=== PATIENT | male | born 1970 | race Caucasian/White ===

== ENCOUNTER 2016-10-20 12:55 | Emergency (ER) | payer BC, MEDICAID ==
[~2016-10-20] VITALS: Ht 177.8 cm; Wt 95.3 kg
--- NOTE | 2016-10-20 13:00 | NUR ---
Placed in room 3 . Placed on electronic device monitor, blood pressure machine and pulse oximeter. To gown for exam. Side rails up. Report given to Gabriela SIMPSON.
--- NOTE | 2016-10-20 13:12 | NUR ---
ER Dr. Ramos at bedside examining patient.
[2016-10-20 13:13] VITALS: BP 138/72; PULSE 65; RESP 16; TEMP 97.8; O2SAT 97
--- NOTE | 2016-10-20 13:15 | NUR ---
PER PATIENT HE STATRTED HAVING ON AND OFF CHEST PAIN ABOUT MORE THAN A WEEK AGO.NO COMPLAIN AT THIS TIME STATED "MY CHEST PAIN COME AND GO".CHECKED AND ASSESSED CHEST;NO SWELLING;NO REDNESS;NO TENDERNESS.NO OTHER COMPLAIN/INJURIES PER PATIENT OR NOTED
[2016-10-20 13:23] LABS: BASOPHILS # (AUTO) 0.1 K/uL (0.0-0.2); BASOPHILS % (AUTO) 1.1 % (0.0-2.0); EOSINOPHILS # (AUTO) 0.3 K/uL (0.0-0.4); EOSINOPHILS % (AUTO) 4.4 % (0.0-4.0); HEMATOCRIT 47.6 % (36-54); HEMOGLOBIN 15.4 g/dL (14.0-18.0); LYMPHOCYTES # (AUTO) 2.1 K/uL (1.0-5.5); LYMPHOCYTES % (AUTO) 27.4 % (20.5-51.5); MEAN CORPUSCULAR HEMOGLOBIN 28 pg (27-31); MEAN CORPUSCULAR HGB CONC 32 % (32-36); MEAN CORPUSCULAR VOLUME 86 fL (79.0-98.0); MONOCYTES # (AUTO) 0.6 K/uL (0.0-1.0); MONOCYTES % (AUTO) 7.2 % (1.7-9.3); NEUTROPHILS # (AUTO) 4.7 K/uL (1.8-7.7); NEUTROPHILS % (AUTO) 59.9 % (40.0-70.0); PLATELET COUNT (AUTO) 320 K/uL (130-430); RED BLOOD CELL COUNT(AUTO) 5.57 MIL/uL (4.2-6.2); RED CELL DISTRIBUTION WIDTH 12.9 % (9.0-15.0); WHITE BLOOD COUNT (AUTO) 7.8 K/uL (4.8-10.8)
[2016-10-20 13:33] LABS: CREATININE 1.11 mg/dL (0.55-1.30); POTASSIUM 4.3 mmol/L (3.5-5.1)
[2016-10-20 13:38] LABS: ALBUMIN 4.1 g/dL (3.4-4.8); TOTAL BILIRUBIN 1.3 mg/dL (0.0-1.0); TOTAL PROTEIN, SERUM 7.1 g/dL (6.4-8.3)
[2016-10-20 13:39] LABS: PROTHROMBIN TIME 10.7 SECS (9.5-12.5)
[2016-10-20 13:43] LABS: BILIRUBIN,URINE NEGATIVE (NEGATIVE); BLOOD, URINE NEGATIVE (NEGATIVE); CLARITY/URINE CLEAR (CLEAR); COLOR,URINE YELLOW (YELLOW); GLUCOSE,URINE NEGATIVE (NEGATIVE); KETONES,URINE NEGATIVE (NEGATIVE); LEUKOCYTE ESTERASE ,URINE NEGATIVE (NEGATIVE); NITRITE, URINE NEGATIVE (NEGATIVE); PROTEIN URINE NEGATIVE (NEGATIVE); UROBILINOGEN,URINE 0.2 (0.2-1.0)
[2016-10-20 14:00] LABS: BARBITURATE, URINE NEGATIVE (NEG <=200); BENZODIAZEPINE, URINE NEGATIVE (NEG <=150); CANNABINOID, URINE NEGATIVE (NEG <=50); COCAINE, URINE NEGATIVE (NEG <=150); METHAMPHETAMINES SCREEN,URINE NEGATIVE (NEG <=500); OPIATE, URINE NEGATIVE (NEG <=100); PHENCYCLIDINE SCREEN,URINE NEGATIVE (NEG <=25); UR TRICYCLIC ANTIDEPRESSANTS NEGATIVE (NEG <=300); URINE AMPHETAMINE NEGATIVE (NEG <=500); URINE METHADONE NEGATIVE (NEG <=200); URINE OXYCODONE SCREEN NEGATIVE (NEG <=100); URINE PROPOXYPHENE SCREEN NEGATIVE (NEG <=300)
[2016-10-20 14:36] VITALS: BP 138/72; PULSE 65; RESP 16; TEMP 98.2; O2SAT 97
--- NOTE | 2016-10-20 14:36 | NUR ---
Patient given written and verbal discharge instructions and verbalizes understanding. ER MD discussed with patient the results and treatment provided. Patient in stable condition. ID arm band removed. IV catheter removed intact and dressing applied, no active bleeding. Patient educated on pain management and to follow up with PMD. Pain Scale 0/10. Opportunity for questions provided and answered.
== END 2016-10-20 14:36 | disposition home or self-care (01) ==
LOC: SED 12:55
DX: R07.89 Other chest pain (principal); F41.9 Anxiety disorder, unspecified; J45.909 Unspecified asthma, uncomplicated
CPT/HCPCS: 36415; 71010; 80053; 80061; 80307; 81003; 83880; 84484; 85025; 85610-TC; 85730-TC; 93005; 99285

== ENCOUNTER 2018-05-30 15:12 | Emergency (ER) | payer MEDICAID ==
[~2018-05-30] VITALS: Ht 172.7 cm; Wt 104.3 kg
[2018-05-30 15:20] VITALS: BP_SYST 168
--- NOTE | 2018-05-30 15:27 | NUR ---
Patient to ER bed 03 to gown for evaluation. Side rails up. Report given to WALTER SIMPSON.
--- NOTE | 2018-05-30 15:30 | NUR ---
Pt presents to ED for 01/09 bilateral toothache / pain that has gotten worse over the last week. Pt reports he has 2 cracked molars from 6 months ago but has been unable to see a dentist due to insurance difficulties. Pt reports taking Amoxicillin from a old surgery with no relief. Otherwise, the patient denies fever, chills, nausea, vomiting, recent trauma or injury, dizziness, chest pain, or shortness of breath.
--- NOTE | 2018-05-30 15:35 | NUR ---
ER Dr. Zabala at bedside examining patient.
[2018-05-30 15:45] VITALS: BP_SYST 147
--- NOTE | 2018-05-30 15:45 | NUR ---
Patient given written and verbal discharge instructions and verbalizes understanding. ER MD discussed with patient the results and treatment provided. Patient in stable condition. ID arm band removed. Rx of Clindamycin & [place] given. Patient educated on pain management and to follow up with PMD. Pain Scale 5/10. Opportunity for questions provided and answered. Medication side effect fact sheet provided.
== END 2018-05-30 15:45 | disposition home or self-care (01) ==
LOC: SED 15:12
DX: K02.9 Dental caries, unspecified (principal); J45.909 Unspecified asthma, uncomplicated; R03.0 Elevated blood-pressure reading, without diagnosis of hypertension
CPT/HCPCS: 99283

== ENCOUNTER 2018-07-15 18:41 | Inpatient (IN) | payer MEDICAID ==
[~2018-07-15] VITALS: Ht 172.7 cm; Wt 103.4 kg
[2018-07-15 18:41] VITALS: BP_SYST 162
[2018-07-15] MEDS ORDERED: NACL 0.9% 1,000 ML IV ONE (18:45)
[2018-07-15] MEDS ORDERED: ONDANSETRON HCL 4 MG/2 ML VIAL IVP ONE (18:45)
[2018-07-15] MEDS ORDERED: NITROGLYCERIN 0.4 MG TAB.SUBL SL ONE ×2 (18:45→18:54)
[2018-07-15] MEDS ORDERED: FAMOTIDINE PF 20 MG/2 ML VIAL IVP ONE (18:45)
[2018-07-15] MEDS ORDERED: ASPIRIN 81 MG TAB.CHEW PO ONE (18:45)
[2018-07-15 19:09] LABS: HEMATOCRIT 45.1 % (36-54); HEMOGLOBIN 15.1 g/dL (14.0-18.0); MEAN CORPUSCULAR HEMOGLOBIN 29 pg (27-31); MEAN CORPUSCULAR VOLUME 86 fL (79.0-98.0); RED BLOOD CELL COUNT(AUTO) 5.27 MIL/uL (4.2-6.2)
[2018-07-15 19:10] LABS: BASOPHILS % (AUTO) 0.7 % (0.0-2.0); EOSINOPHILS % (AUTO) 2.6 % (0.0-4.0); LYMPHOCYTES # (AUTO) 1.9 K/uL (1.0-5.5); LYMPHOCYTES % (AUTO) 21.1 % (20.5-51.5); MEAN CORPUSCULAR HGB CONC 34 % (32-36); MONOCYTES # (AUTO) 0.7 K/uL (0.0-1.0); MONOCYTES % (AUTO) 7.8 % (1.7-9.3); NEUTROPHILS # (AUTO) 6.1 K/uL (1.8-7.7); NEUTROPHILS % (AUTO) 67.8 % (40.0-70.0); PLATELET COUNT (AUTO) 334 K/uL (130-430); RED CELL DISTRIBUTION WIDTH 13.9 % (9.0-15.0)
[2018-07-15 19:11] LABS: BASOPHILS # (AUTO) 0.1 K/uL (0.0-0.2); EOSINOPHILS # (AUTO) 0.2 K/uL (0.0-0.4)
[2018-07-15] MEDS ORDERED: MAG HYDROX/AL HYDROX/SIMETH 30 ML, BELLADONNA ALKALOIDS/PHENOBARB 10 ML, LIDOCAINE VISC... PO ONE ×3 (19:15)
[2018-07-15 19:18] LABS: ANION GAP 9 (5-15); CALCIUM 9.1 mg/dL (8.4-11.0); CHLORIDE 101 mmol/L (98-107); CREATININE 1.09 mg/dL (0.55-1.30); GLUCOSE 133 mg/dL (70-99); POTASSIUM 4.3 mmol/L (3.5-5.1); SODIUM SERUM 141 mmol/L (136-145); UREA NITROGEN, BLOOD 17 mg/dL (8-21)
[2018-07-15 19:19] LABS: GFR AFRICAN AMERICAN 92 mL/min (>90)
[2018-07-15 19:26] LABS: ALANINE AMINOTRANSFERASE 48 U/L (12-78); ALBUMIN 3.9 g/dL (3.4-4.8); ASPARTATE AMINOTRANSFERASE 34 U/L (10-37); LIPASE 242 U/L (73-393); TOTAL BILIRUBIN 1.2 mg/dL (0.0-1.0)
[2018-07-15] MEDS ORDERED: NITROGLYCERIN 1 INCH (GM) OINT. TP ONE (20:15)
[2018-07-15] MEDS ORDERED: NITROGLYCERIN 0.4 MG TAB.SUBL SL PRN (20:30)
[2018-07-15 20:35] VITALS: BP_SYST 150
[2018-07-15 20:52] LABS: BILIRUBIN,URINE NEGATIVE (NEGATIVE); BLOOD, URINE NEGATIVE (NEGATIVE); CLARITY/URINE CLEAR (CLEAR); COLOR,URINE YELLOW (YELLOW); GLUCOSE,URINE NEGATIVE (NEGATIVE); KETONES,URINE TRACE (NEGATIVE); LEUKOCYTE ESTERASE ,URINE TRACE (NEGATIVE); NITRITE, URINE NEGATIVE (NEGATIVE); PROTEIN URINE TRACE (NEGATIVE); UROBILINOGEN,URINE 0.2 (0.2-1.0)
[2018-07-15 21:02] LABS: BACTERIA,URINE RARE /HPF (None Seen); MUCUS,URINE 2+ /LPF (None Seen); RBC,URINE 0-3 /HPF (0-3); WBC,URINE 20-50 /HPF (0-3)
[2018-07-15] MEDS ORDERED: ONDANSETRON HCL 4 MG/2 ML VIAL IVP PRN (21:30)
[2018-07-15] MEDS: PANTOPRAZOLE SODIUM 40 MG/VIAL (PROTONIX) IVP SCH (21:56)
[2018-07-15] MEDS ORDERED: PANTOPRAZOLE SODIUM 40 MG/VIAL (PROTONIX) ONE (22:01)
[2018-07-15] MEDS ORDERED: HYDROmorphone 2 MG/ML VIAL IVP PRN (23:15)
[2018-07-15 23:44] VITALS: BP_SYST 124
[2018-07-16 04:21] LABS: CKMB RELATIVE INDEX 0.4 (0.0-2.9); CREATINE KINASE MB 2.1 ng/mL (0-3.6)
[2018-07-16 06:51] LABS: CKMB RELATIVE INDEX 0.4 (0.0-2.9); CREATINE KINASE MB 1.8 ng/mL (0-3.6)
[2018-07-16 08:02] VITALS: BP_SYST 120
[2018-07-16] MEDS: ASPIRIN 81 MG TAB.CHEW PO SCH (08:34)
[2018-07-16 12:15] VITALS: BP_SYST 137
[2018-07-16 13:54] LABS: CKMB RELATIVE INDEX 0.4 (0.0-2.9); CREATINE KINASE MB 1.7 ng/mL (0-3.6)
[2018-07-16] MEDS: KCL 20 mEq in D5/0.45NS 1000mL 1,000 ML IV SCH (13:59)
[2018-07-16] MEDS: metroNIDAZOLE 500 mg/NS 100 ML IV SCH ×2 (13:59→21:39)
[2018-07-16 16:56] VITALS: BP_SYST 125
[2018-07-16 20:00] VITALS: BP_SYST 120
[2018-07-16] MEDS: PANTOPRAZOLE SODIUM 40 MG/VIAL (PROTONIX) IVP SCH (21:39)
[2018-07-16] MEDS ORDERED: PANTOPRAZOLE SODIUM 40 MG/VIAL (PROTONIX) ONE (21:46)
[2018-07-17] VITALS: BP_SYST 125
[2018-07-17] MEDS: KCL 20 mEq in D5/0.45NS 1000mL 1,000 ML IV SCH (05:00)
[2018-07-17] MEDS: metroNIDAZOLE 500 mg/NS 100 ML IV SCH ×2 (05:01→14:37)
[2018-07-17] MEDS ORDERED: MIDAZOLAM HCL 5 MG/5 ML VIAL ONE (07:20)
[2018-07-17] MEDS ORDERED: SIMETHICONE 40 MG/0.6 ML ML ONE (07:20)
[2018-07-17] MEDS ORDERED: fentaNYL CITRATE/PF 100 MCG/2 ML AMP ONE (07:20)
[2018-07-17 07:27] LABS: PROTHROMBIN TIME 10.5 SECS (9.5-12.5)
[2018-07-17 07:28] LABS: CALCIUM 8.3 mg/dL (8.4-11.0); CREATININE 0.94 mg/dL (0.55-1.30); POTASSIUM 4.5 mmol/L (3.5-5.1); TOTAL BILIRUBIN 1.4 mg/dL (0.0-1.0)
[2018-07-17] MEDS: fentaNYL CITRATE/PF 100 MCG/2 ML AMP ONE ×3 (08:02→08:18)
[2018-07-17] MEDS: MIDAZOLAM HCL 5 MG/5 ML VIAL ONE ×3 (08:04→08:16)
[2018-07-17] MEDS: PANTOPRAZOLE SODIUM 40 MG/VIAL (PROTONIX) IVP SCH (09:34)
[2018-07-17] MEDS: ASPIRIN 81 MG TAB.CHEW PO SCH (09:35)
[2018-07-17 16:05] VITALS: BP_SYST 137
[2018-07-17] MEDS ORDERED: PRO40 PO (18:47)
[2018-07-17 19:01] VITALS: BP_SYST 130
[2018-07-17 19:30] VITALS: BP_SYST 135
== END 2018-07-17 19:35 | disposition home or self-care (01) | DRG 241 ==
LOC: SED 18:41 → STU 20:28
PROVIDERS: ADMIT Family Medicine; ATTEND Family Medicine
PROC: 0DB78ZX Excision of Stomach, Pylorus, Via Natural or Artificial Opening Endoscopic, Diagnostic (ICD-10-PCS; 2018-07-17)
PROC: 0DB48ZX Excision of Esophagogastric Junction, Via Natural or Artificial Opening Endoscopic, Diagnostic (ICD-10-PCS; 2018-07-17)
PROC: 0DB98ZX Excision of Duodenum, Via Natural or Artificial Opening Endoscopic, Diagnostic (ICD-10-PCS; principal; 2018-07-17 08:30)
DX: K29.80 Duodenitis without bleeding (principal); K22.2 Esophageal obstruction; I25.10 Atherosclerotic heart disease of native coronary artery without angina pectoris; E66.9 Obesity, unspecified; K80.20 Calculus of gallbladder without cholecystitis without obstruction; J45.909 Unspecified asthma, uncomplicated; K21.0 Gastro-esophageal reflux disease with esophagitis; K29.00 Acute gastritis without bleeding; Z82.49 Family history of ischemic heart disease and other diseases of the circulatory system
CPT/HCPCS: 36415; 43239; 71045; 76700-TC; 78226; 80053; 80061; 81000-TC; 82150-TC; 82550-TC; 82553-TC; 83690-TC; 84484; 85025; 85610-TC; 87086; 88305; 88312; 88313; 93005; 93306; 96361; 96374; 96375; 99285; A9537; C9113; G0378; J1170; J1956; J2001; J2250; J2405; J3010; J3490; J7030

== ENCOUNTER 2020-03-30 10:14 | Emergency (ER) | payer MEDICAID ==
[~2020-03-30] VITALS: Ht 175.3 cm; Wt 104.3 kg
[~2020-03-30 10:14] MED LIST: PRO40 PO
[2020-03-30 10:34] VITALS: BP_SYST 137
--- NOTE | 2020-03-30 10:34 | NUR ---
Patient to ER bed 3 to gown for evaluation. Side rails up.
--- NOTE | 2020-03-30 10:36 | NUR ---
ER at bedside examining patient.
[2020-03-30] MEDS ORDERED: ASPIRIN 81 MG TAB.CHEW PO ONE (10:45)
[2020-03-30] MEDS ORDERED: NACL 0.9% 1,000 ML IV ONE (10:45)
--- NOTE | 2020-03-30 10:50 | NUR ---
# 20 gauge angiocath placed to right AC. Use of asceptic technique. Opsite placed over site. Blood return noted. Blood for lab drawn from site. Flushed with 10 cc of normal saline. No evidence of infiltration noted. Patient tolerated well.
--- NOTE | 2020-03-30 11:05 | NUR ---
Patient presented to ER C/O chest pain. Patient ambulatory to ER, A&Ox4, skin pink & warm, denies N/V/D, pain 07/12. Patient states he has chest pain X2 days.
--- NOTE | 2020-03-30 11:13 | NUR ---
REPORT GIVEN TO BUDDY SIMPSON
[2020-03-30 11:16] LABS: BASOPHILS # (AUTO) 0.1 K/uL (0.0-0.2); BASOPHILS % (AUTO) 0.7 % (0.0-2.0); EOSINOPHILS # (AUTO) 0.2 K/uL (0.0-0.4); EOSINOPHILS % (AUTO) 2.5 % (0.0-4.0); HEMATOCRIT 44.5 % (36-54); HEMOGLOBIN 15.1 g/dL (14.0-18.0); LYMPHOCYTES # (AUTO) 1.8 K/uL (1.0-5.5); LYMPHOCYTES % (AUTO) 25.8 % (20.5-51.5); MEAN CORPUSCULAR HEMOGLOBIN 29 pg (27-31); MEAN CORPUSCULAR HGB CONC 34 % (32-36); MEAN CORPUSCULAR VOLUME 86 fL (79.0-98.0); MONOCYTES # (AUTO) 0.5 K/uL (0.0-1.0); MONOCYTES % (AUTO) 7.4 % (1.7-9.3); NEUTROPHILS # (AUTO) 4.4 K/uL (1.8-7.7); NEUTROPHILS % (AUTO) 63.6 % (40.0-70.0); PLATELET COUNT (AUTO) 275 K/uL (130-430); RED CELL DISTRIBUTION WIDTH 13.9 % (9.0-15.0); WHITE BLOOD COUNT (AUTO) 6.9 K/uL (4.8-10.8)
[2020-03-30 11:22] LABS: ANION GAP 6 (5-15); CALCIUM 8.8 mg/dL (8.4-11.0); CHLORIDE 101 mmol/L (98-107); CREATININE 0.89 mg/dL (0.55-1.30); GLUCOSE 108 mg/dL (70-99); SODIUM SERUM 139 mmol/L (136-145); UREA NITROGEN, BLOOD 16 mg/dL (8-21)
[2020-03-30 11:27] LABS: ALANINE AMINOTRANSFERASE 54 U/L (12-78); ALBUMIN 4.1 g/dL (3.4-4.8); ASPARTATE AMINOTRANSFERASE 31 U/L (10-37); TOTAL BILIRUBIN 1.4 mg/dL (0.0-1.0)
[2020-03-30 11:28] LABS: GFR AFRICAN AMERICAN 115 mL/min (>90)
--- NOTE | 2020-03-30 11:31 | NUR ---
C/O CP NON RADIATING.CALM, ALERT, RESP UNLABORED, SKIN WARM AND DRY. DENIES SOB. COMMUNICATES CLEARLY IN FULL COMPLETE SENTNECES.
[2020-03-30] MEDS ORDERED: KETOROLAC TROMETHAMINE 30 MG VIAL IVP ONE (11:45)
[2020-03-30 12:30] VITALS: BP_SYST 162
--- NOTE | 2020-03-30 12:30 | NUR ---
Patient given written and verbal discharge instructions and verbalizes understanding. ER MD discussed with patient the results and treatment provided. Patient in stable condition. ID arm band removed. IV catheter removed intact and dressing applied, no active bleeding. Rx of Motrin given. Patient educated on pain management and to follow up with PMD. Pain Scale 0/10. Opportunity for questions provided and answered. Medication side effect fact sheet provided.
== END 2020-03-30 12:30 | disposition home or self-care (01) ==
LOC: SED 10:14
DX: R07.89 Other chest pain (principal); R03.0 Elevated blood-pressure reading, without diagnosis of hypertension; J45.909 Unspecified asthma, uncomplicated; I51.9 Heart disease, unspecified
CPT/HCPCS: 36415; 71045; 80053; 84484; 85025; 85379; 93005; 96360; 99285; J7030

== ENCOUNTER 2023-01-06 16:32 | Emergency (ER) | payer MEDICAID ==
[~2023-01-06] VITALS: Ht 175.3 cm; Wt 99.8 kg
[2023-01-06 16:40] VITALS: BP_SYST 162; PULSE 62; RESP 18; TEMP 98.3; O2SAT 98
[2023-01-06 17:04] LABS: BASOPHILS # (AUTO) 0.1 K/uL (0.0-0.2); BASOPHILS % (AUTO) 0.9 % (0.0-2.0); EOSINOPHILS # (AUTO) 0.2 K/uL (0.0-0.4); EOSINOPHILS % (AUTO) 2.7 % (0.0-4.0); HEMATOCRIT 46.7 % (36-54); HEMOGLOBIN 15.5 g/dL (14.0-18.0); LYMPHOCYTES # (AUTO) 2.4 K/uL (1.0-5.5); LYMPHOCYTES % (AUTO) 32.4 % (20.5-51.5); MEAN CORPUSCULAR HEMOGLOBIN 28 pg (27-31); MEAN CORPUSCULAR HGB CONC 33 % (32-36); MEAN CORPUSCULAR VOLUME 85 fL (79.0-98.0); MONOCYTES # (AUTO) 0.7 K/uL (0.0-1.0); MONOCYTES % (AUTO) 9.3 % (1.7-9.3); NEUTROPHILS % (AUTO) 54.7 % (40.0-70.0); PLATELET COUNT (AUTO) 297 K/uL (130-430); RED CELL DISTRIBUTION WIDTH 14.4 % (9.0-15.0); WHITE BLOOD COUNT (AUTO) 7.3 K/uL (4.8-10.8)
[2023-01-06 17:36] LABS: ALANINE AMINOTRANSFERASE 53 U/L (12-78); ALBUMIN 4.1 g/dL (3.4-4.8); ANION GAP 2 (5-15); ASPARTATE AMINOTRANSFERASE 42 U/L (10-37); CALCIUM 9.1 mg/dL (8.4-11.0); CARBON DIOXIDE 33 mmol/L (23-29); CHLORIDE 104 mmol/L (98-107); CREATININE 0.89 mg/dL (0.55-1.30); GFR AFRICAN AMERICAN 115 mL/min (>90); GFR NON AFRICAN-AMERICAN 95 mL/min (>90); GLUCOSE 88 mg/dL (74-106); POTASSIUM 4.2 mmol/L (3.5-5.1); SODIUM SERUM 139 mmol/L (136-145); TOTAL BILIRUBIN 1.1 mg/dL (0.0-1.0); UREA NITROGEN, BLOOD 17 mg/dL (8-21)
== END 2023-01-06 17:57 | disposition home or self-care (01) ==
LOC: SED 16:32
DX: R07.9 Chest pain, unspecified (principal); R20.2 Paresthesia of skin; J45.909 Unspecified asthma, uncomplicated; Z79.899 Other long term (current) drug therapy
CPT/HCPCS: 36415; 71045; 80053; 84484; 85025; 93005; 99285